=== PATIENT | male | born 1975 | race African-American/Black ===

== ENCOUNTER 2017-03-19 08:48 | Emergency (ER) | payer MEDICAID ==
[~2017-03-19] VITALS: Ht 165.1 cm; Wt 74.8 kg
[2017-03-19 09:12] VITALS: BP 136/91
[2017-03-19] MEDS ORDERED: IPRATROPIUM BROM 0.5 MG/2.5ML INH SOL NEB ONE (09:30)
[2017-03-19] MEDS ORDERED: ALBUTEROL SULF 2.5 MG/0.5ML(0.5%) NEB SOLN NEB ONE (09:30)
[2017-03-19] MEDS ORDERED: methylPREDNISolone SOD SUCC 125 MG/2 ML VL IM ONE (09:30)
[2017-03-19] MEDS ORDERED: cefTRIAXone SOD 1,000 MG VL IM ONE (09:30)
== END 2017-03-19 09:55 | disposition home or self-care (01) ==
LOC: ER 08:48
DX: J45.901 Unspecified asthma with (acute) exacerbation (principal); J20.9 Acute bronchitis, unspecified; F12.10 Cannabis abuse, uncomplicated; F17.210 Nicotine dependence, cigarettes, uncomplicated
CPT/HCPCS: 94640; 96372; 99284; J0696; J2930

== ENCOUNTER 2017-04-04 14:37 | Emergency (ER) | payer MEDICAID ==
[~2017-04-04] VITALS: Ht 165.1 cm; Wt 88.5 kg
[2017-04-04 14:46] VITALS: BP 148/106
== END 2017-04-04 15:45 | disposition home or self-care (01) ==
LOC: ER 14:39
DX: J20.9 Acute bronchitis, unspecified (principal); J02.9 Acute pharyngitis, unspecified; F17.210 Nicotine dependence, cigarettes, uncomplicated; F12.10 Cannabis abuse, uncomplicated

== ENCOUNTER 2017-11-16 17:00 | Emergency (ER) | payer MEDICAID ==
[~2017-11-16] VITALS: Ht 165.1 cm; Wt 88.5 kg
[2017-11-16 20:59] VITALS: BP 138/82
[2017-11-16] MEDS ORDERED: HYDROcodone-ACET 10/325MG TAB PO ONE ×2 (21:30)
== END 2017-11-16 23:20 | disposition home or self-care (01) ==
LOC: EDBD 17:00 → ER 17:02
DX: M62.838 Other muscle spasm (principal); M62.830 Muscle spasm of back; F17.210 Nicotine dependence, cigarettes, uncomplicated; J45.909 Unspecified asthma, uncomplicated; V49.3XXA Car occupant (driver) (passenger) injured in unspecified nontraffic accident, initial encounter; Y93.89 Activity, other specified; Y92.89 Other specified places as the place of occurrence of the external cause; Y99.8 Other external cause status
CPT/HCPCS: 72040; 72100